=== PATIENT | male | born 2000 | race Caucasian/White ===

== ENCOUNTER 2022-08-17 00:36 | Emergency (ER) | payer OTHER, BC ==
[~2022-08-17] VITALS: Ht 188 cm; Wt 72.7 kg
[2022-08-17 00:39] VITALS: TEMP 98.5
[2022-08-17] MEDS ORDERED: CEPHALEXIN500 M1 PO (01:41)
[2022-08-17 01:47] VITALS: BP 142/70; PULSE 76
== END 2022-08-17 01:47 | disposition home or self-care (01) ==
LOC: COL.ER 00:36
DX: S66.126A Laceration of flexor muscle, fascia and tendon of right little finger at wrist and hand level, initial encounter (principal); Z28.311 Partially vaccinated for COVID-19; W26.0XXA Contact with knife, initial encounter